=== PATIENT | male | born 1965 | race African-American/Black ===

== ENCOUNTER 2017-12-20 10:53 | Emergency (ER) | payer OTHER ==
[2017-12-20 11:02] VITALS: BP 114/74; PULSE 67; TEMP 97.9; BMI 27.0
--- NOTE | 2017-12-20 11:22 | PDOC ---
History of Present Illness - General Chief Complaint: Chronic pain Stated Complaint: BODYACHES, PAIN Time Seen by Provider: 12/20/17 11:10 History Source: Patient Exam Limitations: No Limitations - History of Present Illness Initial Comments: 12/20/17 19:00 52 yr male with chronic neck pain from neck surgery in 2013 in [place]. Pt states he ran out of percocet for 4 days is unable to see pain management due to insurance issues. Pt was last seen at [facility] last week for same. Past History - Past Medical History Allergies/Adverse Reactions: Allergies Allergy/AdvReac Type Severity Reaction Status Date / Time No Known Allergies Allergy Verified 12/20/17 10:57 Home Medications: Ambulatory Orders Oxycodone HCl/Acetaminophen [Percocet 5-325 mg Tablet] 1 - 2 tab PO Q6H PRN #12 tab MDD 6 tabs 12/20/17 CVA: Yes (right side residual) - Surgical History Orthopedic Surgery: Yes (neck ) - Suicide/Smoking/Psychosocial Hx Smoking History: Current some day smoker Information on smoking cessation initiated: Yes Review of Systems - Review of Systems Able to Perform ROS?: Yes Is the patient limited Stateless proficient: No Constitutional: No: Symptoms Reported HEENTM: No: Symptoms Reported Respiratory: No: Symptoms reported Cardiac (ROS): No: Symptoms Reported *Physical Exam - Vital Signs Last Vital Signs Temp Pulse Resp BP Pulse Ox 97.9 F 67 20 114/74 99 12/20/17 10:55 12/20/17 10:55 12/20/17 10:55 12/20/17 10:55 12/20/17 10:55 - Physical Exam General Appearance: Yes: Nourished, Appropriately Dressed HEENT: positive: EOMI, JOYA, Pharynx Normal Neck: positive: Supple, Tender lateral, Tender midline. negative: Tender Respiratory/Chest: positive: Lungs Clear, Normal Breath Sounds Cardiovascular: positive: Regular Rhythm, Regular Rate Extremity: positive: Other (right arm hemiparesis) Integumentary: positive: Normal Color, Dry, Warm Neurologic: positive: Fully Oriented, Alert, Normal Mood/Affect, Normal Response , Motor Strength 5/5 Medical Decision Making - Medical Decision Making 12/20/17 19:02 cc: chronic pain ran out of percocet unable to get to pain management will give 3 day supply 12 pills of percocet I discussed the policy on narcotic prescriptions from the ER as pt is asking for 10mg tabs . pt is ambulating with cane at baseline no acute distress, no signs of withdrawl or acute pain. *DC/Admit/Observation/Transfer Diagnosis at time of Disposition: Medication refill Chronic pain Qualifiers: Chronic pain type: other chronic pain Qualified Code(s): G89.29 - Other chronic pain - Discharge Dispostion Disposition: HOME Condition at time of disposition: Good - Prescriptions Prescriptions: Oxycodone HCl/Acetaminophen [Percocet 5-325 mg Tablet] 1 - 2 tab PO Q6H PRN #12 tab MDD 6 tabs PRN Reason: Pain - Referrals - Patient Instructions Additional Instructions: follow with your doctor at [facility] - Post Discharge Activity
== END 2017-12-20 11:52 | disposition home or self-care (01) ==
LOC: JERFT 10:53
DX: M54.2 Cervicalgia (principal); G89.29 Other chronic pain; Z98.890 Other specified postprocedural states; I69.851 Hemiplegia and hemiparesis following other cerebrovascular disease affecting right dominant side; F17.200 Nicotine dependence, unspecified, uncomplicated
CPT/HCPCS: 99281-25

== ENCOUNTER → 2018-11-21 | Emergency (ER) | payer OTHER ==
[2018-11-21 14:46] VITALS: BP 140/88; PULSE 68; TEMP 98.1; BMI 28.3
--- NOTE | 2018-11-21 15:28 | PDOC ---
History of Present Illness - General Chief Complaint: Weakness Stated Complaint: Weakness Time Seen by Provider: 11/21/18 15:19 History Source: Patient Exam Limitations: No Limitations Past History - Past Medical History Allergies/Adverse Reactions: Allergies Allergy/AdvReac Type Severity Reaction Status Date / Time No Known Allergies Allergy Verified 12/20/17 10:57 Home Medications: Ambulatory Orders Oxycodone HCl/Acetaminophen [Percocet 5-325 mg Tablet] 1 - 2 tab PO Q6H PRN #12 tab MDD 6 tabs 12/20/17 Amitriptyline HCl [Elavil -] 50 mg PO HS 11/21/18 Amlodipine Besylate [Norvasc -] 10 mg PO DAILY 11/21/18 Cyanocobalamin [Vitamin B12 -] 1,000 mcg PO DAILY 11/21/18 Duloxetine HCl [Cymbalta -] 60 mg PO DAILY 11/21/18 Gabapentin [Neurontin] 600 mg PO BID 11/21/18 Tizanidine HCl [Zanaflex] 4 mg PO TID PRN 11/21/18 CVA: Yes (right side residual) COPD: No HTN: Yes Psychiatric Problems: Yes Other medical history: spinal stenosis - Surgical History Orthopedic Surgery: Yes (neck ) - Suicide/Smoking/Psychosocial Hx Smoking History: Unknown if ever smoked *Physical Exam - Vital Signs Last Vital Signs Temp Pulse Resp BP Pulse Ox 98.1 F 68 18 140/88 98 11/21/18 14:33 11/21/18 14:33 11/21/18 14:33 11/21/18 14:33 11/21/18 14:33 Critical Care Time/MDM Note - Medical Decision Making Note: 11/21/18 15:29 52y M hx of htn, hl, sp cervical laminectomy c/b CVA, with residual R sided arm weakness, neurosyphillis? presents with R arm weakness/stiffness - pt states that his symptoms started approx 10am when he was at a meeting, notes that his R arm and b/l leg started feelng stiffness. Pt is unable to tell me if the weakness is worse than from his bsaeline (attempted to ask this multiple ways) - pt became frustrated, and departed the hospital. I made multiple attempts to convince the patient to return to finish his evaluation and work him up - especially discussing my concern for a possible CVA. Pt states 'im not having a stroke', states he is just dehydrated - but refused to ask me further questions reqarding his baseline neurologic status. I discussed my desire to obtain blood work and a CT o fhis head, but first need to understand his baseline neurologic status. Pt refused further care and walked out. during my evaluation, pt was alert, oriented, logical. he was able ot move all 4 extremities spontaeneously and symmetrically. amublatory with a gait. his exam was limited due to compliance as he walked out during the evaluation. I discussed my cconerns, and do feel the pt had the capacity to understand my concerns including my concerns for a CVA vs metabolic derangement vs occul tinfection. I told the pt he can return at any time to complete his workup and evaluation *DC/Admit/Observation/Transfer Diagnosis at time of Disposition: Arm weakness - Discharge Dispostion Disposition: LEFT BEFORE [facility] - Referrals - Patient Instructions - Post Discharge Activity
== END | disposition left against medical advice (07) ==
LOC: JER 13:52
DX: Z53.21 Procedure and treatment not carried out due to patient leaving prior to being seen by health care provider (principal)
CPT/HCPCS: 99281-25